=== PATIENT | male | born 1970 | race Caucasian/White ===

== ENCOUNTER 2019-05-07 08:00 | Emergency (ER) | payer MEDICAID ==
[2019-05-07] MEDS ORDERED: Ketorolac 60 MG/2 ML SDV IM ONE (08:22)
[2019-05-07] MEDS ORDERED: methylPREDNISolone Sodium Succinate 125 MG/2 ML SDV IM ONE (08:26)
--- NOTE | 2019-05-07 08:32 | EDM.PDOC ---
ED HPI GENERAL MEDICAL PROBLEM - General Chief Complaint: Back Pain or Injury Stated Complaint: BACK PAIN Time Seen by Provider: 05/07/19 08:06 Source of Information: Reports: Patient History Limitations: Reports: No Limitations - History of Present Illness INITIAL COMMENTS - FREE TEXT/NARRATIVE: HISTORY AND PHYSICAL: History of present illness: Patient is a 49-year-old male presents to the ED today with concern of a flareup of his chronic low back pain. Patient states he has an extensive history of back issues and daily has back pain per his baseline. Patient states starting last night he started noticing a was having a flareup of his pain. Patient states he has sciatic down the right but is currently having some down the left as well today. Patient states he's been using a heating pack without relief of symptoms but has not taken any other medication. Patient denies any loss or retention of bowel and bladder function or any saddle anesthesia. Patient denies any other symptoms or concerns. Patient denies fever, chills, chest pain, shortness of breath, or cough. Denies headache, neck stiff ness, change in vision, syncope, or near syncope. Denies nausea, vomiting, abdominal pain, diarrhea, constipation, or dysuria. Has not noted any blood in urine or stool. Patient has been eating and drinking appropriately. Review of systems: As per history of present illness and below otherwise all systems reviewed and negative. Past medical history: As per history of present illness and as reviewed below otherwise noncontributory. Surgical history: As per history of present illness and as reviewed below otherwise noncontributory. Social history: See social history for further information Family history: As per history of present illness and as reviewed below otherwise noncontributory. Physical exam: General: Patient is alert, oriented, and in no acute distress. Patient sitting comfortably on exam table. HEENT: Atraumatic, normocephalic, pupils equal and reactive bilaterally, negative for conjunctival pallor or scleral icterus, mucous membranes moist, TMs normal bilaterally, throat clear, neck supple, nontender, trachea midline. No drooling or trismus noted. No meningeal signs. No hot potato voice noted. Lungs: Clear to auscultation, breath sounds equal bilaterally, chest nontender. Heart: S1S2, regular rate and rhythm without overt murmur Abdomen: Soft, nondistended, nontender. Negative for masses or hepatosplenomegaly. Negative for costovertebral tenderness. Pelvis: Stable nontender. Genitourinary: Deferred. Rectal: Deferred. Skin: Intact, warm, dry. No lesions or rashes noted. Extremities: Atraumatic, negative for cords or calf pain. Neurovascular unremarkable. No obvious deformity of the complete spine. No step-off, or crepitus noted on palpation of complete spine. Patient does have mild to moderate pain with palpation of the lumbar vertebrae and surrounding paraspinous muscles but does have full range of motion of complete spine with mild-moderate pain with range of motion of the lumbar spine. SLR intact. Patellar reflexes intact bilaterally. Tip toe/heel gait intact. Neuro: Awake, alert, oriented. Cranial nerves II through XII unremarkable. Cerebellum unremarkable. Motor and sensory unremarkable throughout. Exam nonfocal. Notes: Discussed the importance for follow-up with a primary care provider. Voices understanding and is agreeable to plan of care. Denies any further questions or concerns at this time. Diagnostics: Lumbar x-ray Therapeutics: Toradol, Norflex, Solu-Medrol Prescription: Diclofenac, Flexeril Impression: Acute on chronic low back pain Plan: 1. Rest, ice, elevate the affected area. You can apply ice and or heat 15 minutes on, 15 minutes off. 2. Tylenol as directed for pain management or discomfort. Take medication as prescribed. 3. Follow up with the primary care provider as discussed. Return to the ED as needed and as discussed. Definitive disposition and diagnosis as appropriate pending reevaluation and review of above. Back Pain Score (Numeric/FACES): 8 - Related Data Allergies Allergy/AdvReac Type Severity Reaction Status Date / Time No Known Allergies Allergy Verified 05/07/19 08:12 Home Meds: Home Meds Cyclobenzaprine [Flexeril] 10 mg PO TID PRN #9 tab 05/07/19 [Rx] Diclofenac Sodium [Voltaren] 75 mg PO BIDMEALS PRN #15 tab.cr 05/07/19 [Rx] Past Medical History HEENT History: Reports: None Cardiovascular History: Reports: None Respiratory History: Reports: None Gastrointestinal History: Reports: None Genitourinary History: Reports: None Musculoskeletal History: Reports: Back Pain, Chronic, Osteoarthritis, Other ( See Below) Other Musculoskeletal History: Spondolysis, sciatic nerve pain, Facet arthropathy, tenditis Neurological History: Reports: None Psychiatric History: Reports: None Endocrine/Metabolic History: Reports: None Hematologic History: Reports: None Immunologic History: Reports: None Oncologic (Cancer) History: Reports: None Dermatologic History: Reports: None - Infectious Disease History Infectious Disease History: Reports: Hepatitis C - Past Surgical History Head Surgeries/Procedures: Reports: None HEENT Surgical History: Reports: None Cardiovascular Surgical History: Reports: None Respiratory Surgical History: Reports: None GI Surgical History: Reports: None Male Surgical History: Reports: None Endocrine Surgical History: Reports: None Neurological Surgical History: Reports: None Musculoskeletal Surgical History: Reports: None Oncologic Surgical History: Reports: None Dermatological Surgical History: Reports: None Social & Family History - Family History Family Medical History: Noncontributory - Tobacco Use Smoking Status *Q: Current Every Day Smoker Years of Tobacco use: 20 Packs/Tins Daily: 0.5 - Caffeine Use Caffeine Use: Reports: Coffee, Energy Drinks, Soda, Tea - Recreational Drug Use Recreational Drug Use: No ED ROS GENERAL - Review of Systems Review Of Systems: ROS reveals no pertinent complaints other than HPI. ED EXAM, GENERAL - Physical Exam Exam: See Below (See dictation) Course - Vital Signs Last Recorded V/S: Last Vital Signs Temp 96.8 F 05/07/19 08:10 Pulse 57 L 05/07/19 08:10 Resp 18 05/07/19 08:10 BP 99/66 05/07/19 08:10 Pulse Ox 97 05/07/19 08:10 - Orders/Labs/Meds Meds: Medications Discontinued Medications Generic Name Dose Route Start Last Admin Trade Name Alan PRN Reason Stop Dose Admin Ketorolac Tromethamine 60 mg 05/07/19 08:22 05/07/19 08:31 Toradol IM 05/07/19 08:23 60 mg ONETIME ONE Administration Methylprednisolone Sodium Succinate 125 mg 05/07/19 08:26 05/07/19 08:38 Solu-Medrol IM 05/07/19 08:27 125 mg ONETIME ONE Administration Orphenadrine Citrate 60 mg 05/07/19 08:22 05/07/19 08:36 Norflex IM 05/07/19 08:23 60 mg NOW STA Administration Departure - Departure Time of Disposition: :31 Disposition: Home, Self-Care 01 Clinical Impression: Acute exacerbation of chronic low back pain - Discharge Information Prescriptions: Cyclobenzaprine [Flexeril] 10 mg PO TID PRN #9 tab PRN Reason: Spasms Diclofenac Sodium [Voltaren] 75 mg PO BIDMEALS PRN #15 tab.cr PRN Reason: Pain Referrals: PCP,None [Primary Care Provider] - Forms: ED Department Discharge Additional Instructions: The following information is given to patients seen in the emergency department who are being discharged to home. This information is to outline your options for follow-up care. We provide all patients seen in our emergency department with a follow-up referral. The need for follow-up, as well as the timing and circumstances, are variable depending upon the specifics of your emergency department visit. If you don't have a primary care physician on staff, we will provide you with a referral. We always advise you to contact your personal physician following an emergency department visit to inform them of the circumstance of the visit and for follow-up with them and/or the need for any referrals to a consulting specialist. The emergency department will also refer you to a specialist when appropriate. This referral assures that you have the opportunity for follow-up care with a specialist. All of these measure are taken in an effort to provide you with optimal care, which includes your follow-up. Under all circumstances we always encourage you to contact your private physician who remains a resource for coordinating your care. When calling for follow-up care, please make the office aware that this follow-up is from your recent emergency room visit. If for any reason you are refused follow-up, please contact the [facility] Emergency Department at and asked to speak to the emergency department charge nurse. [facility] Primary Care [address] [place] [id number] [address] 1. Rest, ice, elevate the affected area. You can apply ice and or heat 15 minutes on, 15 minutes off. 2. Tylenol as directed for pain management or discomfort. Take medication as prescribed. 3. Follow up with the primary care provider as discussed. Return to the ED as needed and as discussed.
--- NOTE | 2019-05-07 09:29 | CR ---
INDICATION: Pain TECHNIQUE: Lumbar spine 3 view COMPARISON: None FINDINGS: Bones: Grade 1 spondylolisthesis measuring 10 mm is at L4-5. Alignment is otherwise normal. No fractures or bone lesions. Joints: Multilevel disc space narrowing is most severe at L4-5 and L5-S1. Moderate facet joint spondylosis is in the lower lumbar spine. Soft tissues: Unremarkable. Dictated by Taz Evans MD @ May 07 2019 9:23AM Signed by Dr. Taz Evans @ May 07 2019 9:28AM
== END 2019-05-07 09:38 | disposition home or self-care (01) ==
LOC: EDBD 08:00 → MW.ED 08:00
DX: M54.5 Low back pain (principal); G89.29 Other chronic pain; M19.90 Unspecified osteoarthritis, unspecified site; F17.210 Nicotine dependence, cigarettes, uncomplicated; Z79.899 Other long term (current) drug therapy
CPT/HCPCS: 72100; 96372; 99283; J1885; J2360; J2930

== ENCOUNTER 2019-05-16 09:47 | Emergency (ER) | payer MEDICAID ==
--- NOTE | 2019-05-16 09:51 | EDM.PDOC ---
<Elizabeth Fang - Last Filed: 05/16/19 09:51> ED HPI GENERAL MEDICAL PROBLEM - General Chief Complaint: Back Pain or Injury Stated Complaint: BACK PAIN Time Seen by Provider: 05/16/19 09:50 - Related Data Allergies Allergy/AdvReac Type Severity Reaction Status Date / Time No Known Allergies Allergy Verified 05/07/19 08:12 Home Meds: Home Meds Cyclobenzaprine [Flexeril] 10 mg PO TID PRN #9 tab 05/07/19 [Rx] Diclofenac Sodium [Voltaren] 75 mg PO BIDMEALS PRN #15 tab.cr 05/07/19 [Rx] Past Medical History HEENT History: Reports: None Cardiovascular History: Reports: None Respiratory History: Reports: None Gastrointestinal History: Reports: None Genitourinary History: Reports: None Musculoskeletal History: Reports: Back Pain, Chronic, Osteoarthritis, Other ( See Below) Other Musculoskeletal History: Spondolysis, sciatic nerve pain, Facet arthropathy, tenditis Neurological History: Reports: None Psychiatric History: Reports: None Endocrine/Metabolic History: Reports: None Hematologic History: Reports: None Immunologic History: Reports: None Oncologic (Cancer) History: Reports: None Dermatologic History: Reports: None - Infectious Disease History Infectious Disease History: Reports: Hepatitis C - Past Surgical History Head Surgeries/Procedures: Reports: None HEENT Surgical History: Reports: None Cardiovascular Surgical History: Reports: None Respiratory Surgical History: Reports: None GI Surgical History: Reports: None Male Surgical History: Reports: None Endocrine Surgical History: Reports: None Neurological Surgical History: Reports: None Musculoskeletal Surgical History: Reports: None Oncologic Surgical History: Reports: None Dermatological Surgical History: Reports: None Social & Family History - Family History Family Medical History: Noncontributory - Caffeine Use Caffeine Use: Reports: Coffee, Energy Drinks, Soda, Tea Course - Orders/Labs/Meds Meds: Medications Discontinued Medications Generic Name Dose Route Start Last Admin Trade Name Freq PRN Reason Stop Dose Admin Ketorolac Tromethamine 60 mg 05/16/19 10:28 05/16/19 10:33 Toradol IM 05/16/19 10:29 60 mg ONETIME ONE Administration Orphenadrine Citrate 60 mg 05/16/19 10:28 05/16/19 10:33 Norflex IM 05/16/19 10:29 60 mg NOW STA Administration Departure - Departure Disposition: Home, Self-Care 01 Clinical Impression: Chronic back pain Qualifiers: Back pain location: low back pain Back pain laterality: bilateral Sciatica presence: unspecified whether sciatica present Qualified Code(s): M54.5 - Low back pain - Discharge Information Referrals: PCP,None [Primary Care Provider] - Forms: ED Department Discharge Additional Instructions: The following information is given to patients seen in the emergency department who are being discharged to home. This information is to outline your options for follow-up care. We provide all patients seen in our emergency department with a follow-up referral. The need for follow-up, as well as the timing and circumstances, are variable depending upon the specifics of your emergency department visit. If you don't have a primary care physician on staff, we will provide you with a referral. We always advise you to contact your personal physician following an emergency department visit to inform them of the circumstance of the visit and for follow-up with them and/or the need for any referrals to a consulting specialist. The emergency department will also refer you to a specialist when appropriate. This referral assures that you have the opportunity for follow-up care with a specialist. All of these measure are taken in an effort to provide you with optimal care, which includes your follow-up. Under all circumstances we always encourage you to contact your private physician who remains a resource for coordinating your care. When calling for follow-up care, please make the office aware that this follow-up is from your recent emergency room visit. If for any reason you are refused follow-up, please contact the [facility] Emergency Department at and asked to speak to the emergency department charge nurse. [facility] Primary Care [address] [place] [id number] [address] 1. The medication you received today does cause drowsiness, so do not drive for the remaining day 2. When resting please lay on a flat firm surface. Limit your immobility to prevent muscle stiffness. Get up to ambulate/move around/gentle stretching multiple times throughout the day. May alternate heat and ice to the painful areas 3. Tylenol as needed for back pain. Otherwise take the prescribed Norflex and Tramadol as directed. Both may cause drowsiness a do not take these medications together . Do not take while driving or needing to be functioning outside of the house. 4. Please follow-up with your primary care provider as we discussed. Return to the ED as needed and as discussed. <Zari Dhaliwal E - Last Filed: 05/16/19 10:44> ED HPI GENERAL MEDICAL PROBLEM - General Source of Information: Reports: Patient History Limitations: Reports: No Limitations - History of Present Illness INITIAL COMMENTS - FREE TEXT/NARRATIVE: HISTORY AND PHYSICAL: History of present illness: Patient is a 49-year-old male who presents to the emergency room with complaints of lumbar back pain. He was seen in our emergency room on 05/07/19 for the same complaint did have a lumbar spine x-ray; which was within normal limits. He was given a prescription for diclofenac and Flexeril. He states that he is no longer taking the diclofenac or Flexeril as he has ran out of both and notified me that day did not help. He states he is not taking any medication right now for his back pain. He denies any new injuries since his last visit. He has complaints of lumbar back pain that is stabbing and throbbing, rating it at a 9 out of 10c saying he "can't bend over". He relays no alleviating factors for his lower back pain other than the IM injection he received his last ER visit, while moving and bending over a growth plates the pain. He states he does get nauseous intermittently the pain. He does not have a primary care provider. He denies paresthesias, loss of bowel or bladder, vomiting, or abdominal pain. Review of systems: As per history of present illness and below otherwise all systems reviewed and negative. Past medical history: As per history of present illness and as reviewed below otherwise noncontributory. Surgical history: As per history of present illness and as reviewed below otherwise noncontributory. Social history: See social history for further information Family history: As per history of present illness and as reviewed below otherwise noncontributory. Physical exam: General: Well-developed and well-nourished 49-year-old male. Alert and oriented. Nontoxic appearing and in no acute distress. HEENT: Atraumatic, normocephalic, pupils equal and reactive bilaterally, negative for conjunctival pallor or scleral icterus, mucous membranes moist, TMs normal bilaterally, throat clear, neck supple, nontender, trachea midline. No drooling or trismus noted. No meningeal signs. No hot potato voice noted. Lungs: Clear to auscultation, breath sounds equal bilaterally, chest nontender. Heart: S1S2, regular rate and rhythm without overt murmur Abdomen: Soft, nondistended, nontender. Negative for masses or hepatosplenomegaly. Negative for costovertebral tenderness. Pelvis: Stable nontender. C-spine/Back: Pinpoint vertebral tenderness upon palpation of the lumbosacral spine. No crepitus, step-offs or obvious deformities. Patient is ambulatory into the emergency room without difficulty or deficit. Able to rock back on heels and walk on toes. Denies any urinary or fecal incontinence. Denies any numbness, tingling or saddle paresthesia. Skin: Intact, warm, dry. No lesions or rashes noted. Extremities: Atraumatic, moves all extremities per self without difficulty or deficits, negative for cords or calf pain. Neurovascular unremarkable. Neuro: Awake, alert, oriented. Cranial nerves II through XII unremarkable. Cerebellum unremarkable. Motor and sensory unremarkable throughout. Exam nonfocal. Notes: As this patient was just seen a week ago he is aware that he does need to establish with a primary care provider. He states that previously he was in the process of getting a pain contract for chronic pain management. Limited amount of medications will be prescribed here. Supportive care measures were reviewed and discussed. Voices understanding and is agreeable to plan of care. Denies any further questions or concerns at this time. Diagnostics: None Therapeutics: Norflex and Toradol IM Prescription: Medrol dosepak Tramadol (#15) Norflex (#10) Impression: Low back pain Plan: 1. The medication you received today does cause drowsiness, so do not drive for the remaining day 2. When resting please lay on a flat firm surface. Limit your immobility to prevent muscle stiffness. Get up to ambulate/move around/gentle stretching multiple times throughout the day. May alternate heat and ice to the painful areas 3. Tylenol as needed for back pain. Otherwise take the prescribed Norflex and Tramadol as directed. Both may cause drowsiness a do not take these medications together . Do not take while driving or needing to be functioning outside of the house. 4. Please follow-up with your primary care provider as we discussed. Return to the ED as needed and as discussed. Definitive disposition and diagnosis as appropriate pending reevaluation and review of above. Duration: Chronic Location: Reports: Back ED ROS GENERAL - Review of Systems Review Of Systems: ROS reveals no pertinent complaints other than HPI. ED EXAM,LOWER BACK PAIN/INJURY - Physical Exam Exam: See Below (See dictation) Course - Orders/Labs/Meds Meds: Medications Discontinued Medications Generic Name Dose Route Start Last Admin Trade Name Alan PRN Reason Stop Dose Admin Ketorolac Tromethamine 60 mg 05/16/19 10:28 05/16/19 10:33 Toradol IM 05/16/19 10:29 60 mg ONETIME ONE Administration Orphenadrine Citrate 60 mg 05/16/19 10:28 05/16/19 10:33 Norflex IM 05/16/19 10:29 60 mg NOW STA Administration Departure - Departure Time of Disposition: 10:40
[2019-05-16] MEDS ORDERED: Ketorolac 60 MG/2 ML SDV IM ONE (10:28)
== END 2019-05-16 11:03 | disposition home or self-care (01) ==
LOC: MW.ED 09:47
DX: M54.5 Low back pain (principal)
CPT/HCPCS: 96372; 99283; J1885; J2360